=== PATIENT | female | born 1930 | race Caucasian/White ===

== ENCOUNTER 2016-08-31 00:44 | Day surgery (SDC) | payer MEDICARE ==
[2016-08-31] VITALS (8 sets, daily range): BP systolic 112–139; BP diastolic 57–79; PULSE 62–97; O2SAT 98–99
[~2016-08-31] VITALS: Ht 154.9 cm; Wt 80.9 kg
[~2016-08-31 00:44] MED LIST: ALLO300T2 PO; ATOR20TA PO; BIOT25006 PO; CHOL10008 PO; CLOT30SO TOPICAL; COLC0.6T52 PO; FLUT16SP NS; FURO40TA4 PO; KEN25CR EXT; LEVO112T4 PO; LOSA100T29 PO; METO100T3 PO; OMEP20TA86 PO; POTA10TA12 PO; PRAZ2CAP2 PO; WARF2TAB7 PO
[2016-08-31] MEDS ORDERED: Methohexital 10 mg/mL 50 mL Inj IV ONE (06:00)
[2016-08-31] MEDS ORDERED: 0.9% Sodium Chloride 1,000 ML IV SCH (06:00)
[2016-08-31 12:51] LABS: BASOPHILS % (AUTO) 0.2 % (0-3); EOSINOPHILS % (AUTO) 4.1 % (0-5); MONOCYTES % (AUTO) 5.8 % (4-12); Mean Corpuscular Hemoglobin 29.2 pg (27.0-35.0); Mean Corpuscular Volume 93.8 fL (81-100); NEUTROPHILS % (AUTO) 73.8 % (40-74); Platelet Count 152 bil/L (150-400)
[2016-08-31 13:01] LABS: INR 2.49 ratio
[2016-08-31] MEDS ORDERED: FURO-129 PO (13:45)
[2016-08-31] MEDS ORDERED: Methohexital 10 mg/mL 50 mL Inj ONE (13:47)
[2016-08-31] MEDS ORDERED: Atropine 1 mg/10 mL (Code) Syringe ONE (13:48)
--- NOTE | 2016-08-31 14:23 | NUR ---
Assisted with cardioversion. No respiratory issues noted. EKG done before and after.
--- NOTE | 2016-09-01 06:59 | PROCED ---
[address] [address] PROCEDURE NOTE PATIENT: HONEY NORIEGA : 1930 MR#: [id number] ADMIT: 08/31/2016 JOB ID: [id number] DATE OF SERVICE: 08/31/2016 PREOPERATIVE DIAGNOSIS(ES): 1. Atrial fibrillation. 2. 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 POSTOPERATIVE DIAGNOSIS(ES): 1. Normal sinus rhythm. 2. 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 PROCEDURES PERFORMED: 1. Direct current cardioversion. 2. Periprocedural pacemaker interrogation. SURGEON: [employer]: Salo Murray MD, electrophysiology attending. SEDATION: Versed 1 mg and Brevital 25 mg were utilized for appropriate level of sedation. 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 She has had symptomatic atrial fibrillation over the last two weeks and has been anticoagulated for the last several years. After discussion of risks and benefits of cardioversion, she opted to proceed. PROCEDURAL DESCRIPTION: Following informed signed consent, the patient was taken to the procedure suite in a fasting state where defibrillator patches were placed in the anterior and posterior positions. After adequate sedation, a 200 joule biphasic synchronized shock was used to convert her to sinus rhythm. Her pacemaker was interrogated pre and postprocedurally, specifically, postprocedurally, her sensing threshold and impedances were excellent. She is programmed AAIR to DDDR 60-130 beats per. IMPRESSION: Successful direct current cardioversion. PLAN: 1. Recovery and discharge from the [facility]. 2. Continue current medication regimen. 3. Follow up with Peter Barger in clinic in 3-4 weeks. ATTENDING STATEMENT: Salo Murray MD, electrophysiology attending, was present for and supervised/performed all aspects of this procedure.
== END 2016-08-31 23:59 | disposition home or self-care (01) ==
LOC: SOUO 00:44
PROVIDERS: ATTEND Internal Medicine Cardiovascular Disease
DX: I48.0 Paroxysmal atrial fibrillation (principal); Z95.0 Presence of cardiac pacemaker; I49.5 Sick sinus syndrome; Z79.01 Long term (current) use of anticoagulants; I10 Essential (primary) hypertension; J44.9 Chronic obstructive pulmonary disease, unspecified; E03.9 Hypothyroidism, unspecified; E78.5 Hyperlipidemia, unspecified
CPT/HCPCS: 36415; 80048; 85025; 85610; 92960; 93005; 94799; 99151; J2250